=== PATIENT | female | born 1950 | race Two or more races ===

== ENCOUNTER 2020-05-23 16:36 | Inpatient (IN) | payer MEDICARE, MEDICAID ==
[~2020-05-23] VITALS: Ht 160 cm; Wt 87.7 kg
[2020-05-23] MEDS ORDERED: SOD CHL 0.45% WITH 20MEQ KCL 1,000 ML IV ONE (17:00)
[2020-05-23] MEDS ORDERED: ASCORBIC ACID 500 MG TAB PO ONE (17:00)
[2020-05-23] MEDS ORDERED: MORPHINE SULF INJ 2 MG/ML SYRINGE 1ML IV PRN (17:00)
[2020-05-23] MEDS ORDERED: NITROGLYCERIN 0.4 MG SL TAB SL PRN (17:00)
[2020-05-23] MEDS ORDERED: ALBUTEROL SULF 2.5 MG/0.5ML(0.5%) NEB SOLN ONE (17:34)
[2020-05-23 18:13] VITALS: BP 97/59
[2020-05-23 18:17] LABS: Basophils # (auto) 0 10 ^3/uL (0-0.2); Basophils % (auto) 0.2 % (0.0-2.0); Eosinophils # (auto) 0.2 10 ^3/uL (0-0.8); Eosinophils % (auto) 2.6 % (0.0-7.0); Hematocrit 37.2 % (36.0-46.0); Hemoglobin 12.6 g/dL (12.2-16.2); Lymphocytes # (auto) 1.4 10 ^3/uL (0.4-5.4); Lymphocytes % (auto) 22.3 % (10.0-50.0); Mean Corpuscular Hemoglobin 27.4 pg (28.0-32.0); Mean Corpuscular Hgb Conc. 33.9 g/dL (32.0-36.0); Mean Corpuscular Volume 80.9 fL (80.0-100.0); Monocytes # (auto) 0.4 10 ^3/uL (0-1.3); Monocytes % (auto) 7.3 % (0.0-12.0); Neutrophils # (auto) 4.1 10 ^3/uL (1.6-8.6); Neutrophils % (auto) 67.6 % (37.0-80.0); Platelet Count (auto) 192 10^3/uL (140-450); Red Blood Cells 4.59 10^6/uL (4.0-5.20); White Blood Cell 6.1 10^3/uL (4.4-10.8)
[2020-05-23] MEDS: ALBUTEROL SULF 2.5 MG/0.5ML(0.5%) NEB SOLN NEB SCH (18:18)
[2020-05-23 18:25] LABS: Red Cell Distribution Width 20.8 % (11.8-14.3)
[2020-05-23 18:35] LABS: INR 1.09 (0.9-1.15); Partial Thromboplastin Time 26.7 sec (23.0-31.2)
[2020-05-23 18:41] LABS: Cholesterol 140 mg/dL (< 200); HDL Cholesterol 35 mg/dL (40-59); LDL Cholesterol 94 mg/dL (< 100); Triglycerides 108 mg/dL (< 150)
[2020-05-23] MEDS: ERGOCALCIFEROL 50,000 UNIT(1.25MG) CAP PO SCH (19:08)
[2020-05-23 21:40] VITALS: BP 113/50
[2020-05-23] MEDS ORDERED: MONT5CHW23 PO (23:40)
[2020-05-23] MEDS ORDERED: ZINC220C8 PO (23:40)
[2020-05-23] MEDS ORDERED: CHOL20007 PO (23:40)
[2020-05-23] MEDS ORDERED: SERT-274 PO (23:40)
[2020-05-24] MEDS: ALBUTEROL SULF 2.5 MG/0.5ML(0.5%) NEB SOLN NEB SCH ×4 (03:08→21:16)
[2020-05-24 05:00] VITALS: BP 101/54
[2020-05-24 07:09] LABS: Basophils # (auto) 0 10 ^3/uL (0-0.2); Basophils % (auto) 0.2 % (0.0-2.0); Eosinophils # (auto) 0.2 10 ^3/uL (0-0.8); Eosinophils % (auto) 4.4 % (0.0-7.0); Hematocrit 32.5 % (36.0-46.0); Hemoglobin 10.7 g/dL (12.2-16.2); Lymphocytes % (auto) 26.7 % (10.0-50.0); Mean Corpuscular Hemoglobin 27.1 pg (28.0-32.0); Mean Corpuscular Volume 82.2 fL (80.0-100.0); Monocytes # (auto) 0.3 10 ^3/uL (0-1.3); Monocytes % (auto) 8.7 % (0.0-12.0); Neutrophils # (auto) 2.3 10 ^3/uL (1.6-8.6); Nucleated Red Blood Cells % 0.1 %; Platelet Count (auto) 141 10^3/uL (140-450); Red Blood Cells 3.96 10^6/uL (4.0-5.20); White Blood Cell 3.9 10^3/uL (4.4-10.8)
[2020-05-24 07:18] LABS: Cholesterol 120 mg/dL (< 200); HDL Cholesterol 31 mg/dL (40-59); LDL Cholesterol 83 mg/dL (< 100); Triglycerides 78 mg/dL (< 150)
[2020-05-24 07:24] LABS: Red Cell Distribution Width 20.9 % (11.8-14.3)
[2020-05-24 08:00] VITALS: BP 106/58
[2020-05-24 08:39] VITALS: BP 106/58
[2020-05-24] MEDS: levoFLOXacin 500MG 100 ML IV SCH (08:40)
[2020-05-24 08:55] LABS: Albumin 2.6 g/dL (3.4-5.0); Calcium 9.2 mg/dL (8.5-10.1); Potassium 4.1 mmol/L (3.5-5.1)
[2020-05-24 09:00] LABS: BUN/Creatinine Ratio 25.9; Bilirubin, Total 0.5 mg/dL (0.2-1.0); Total Protein 7.9 g/dL (6.4-8.2)
[2020-05-24] MEDS: cefTRIAXone 1GM/50ML D5W 50 ML IV SCH (10:15)
[2020-05-24] MEDS ORDERED: FUROSEMIDE 40 MG/4 ML VIAL IV ONE (11:15)
[2020-05-24] MEDS ORDERED: ALBUTEROL SULF 2.5 MG/0.5ML(0.5%) NEB SOLN NEB PRN (11:15)
[2020-05-24] MEDS ORDERED: LEVOTHYROXINE SODIUM 100 MCG/5 ML INJ IV ONE (11:15)
[2020-05-24] MEDS ORDERED: MORPHINE SULF INJ 2 MG/ML SYRINGE 1ML IV ONE (11:15)
[2020-05-24 12:37] VITALS: BP 91/59
[2020-05-24] MEDS: MONTELUKAST SODIUM 10 MG TAB PO SCH (12:46)
[2020-05-24] MEDS: methylPREDNISolone SOD SUCC 125 MG/2 ML VL IV SCH ×2 (13:44→21:37)
[2020-05-24 16:36] VITALS: BP 111/64
[2020-05-24 22:00] VITALS: BP 102/66
[2020-05-25 05:06] VITALS: BP 104/58
[2020-05-25] MEDS: LEVOTHYROXINE SODIUM 100 MCG TAB PO SCH (05:38)
[2020-05-25] MEDS: methylPREDNISolone SOD SUCC 125 MG/2 ML VL IV SCH ×3 (05:38→21:35)
[2020-05-25] MEDS: ALBUTEROL SULF 2.5 MG/0.5ML(0.5%) NEB SOLN NEB SCH ×3 (06:18→22:06)
[2020-05-25 08:00] VITALS: BP 106/58
[2020-05-25 08:34] VITALS: BP 94/60
[2020-05-25] MEDS: cefTRIAXone 1GM/50ML D5W 50 ML IV SCH (09:41)
[2020-05-25] MEDS: MONTELUKAST SODIUM 10 MG TAB PO SCH (09:41)
[2020-05-25] MEDS: ZINC SULFATE 220mg CAP or TAB PO SCH (09:41)
[2020-05-25] MEDS ORDERED: SERTRALINE HCL 50 MG TAB PO SCH (10:00)
[2020-05-25] MEDS: levoFLOXacin 500MG 100 ML IV SCH (10:50)
[2020-05-25] MEDS ORDERED: LORATADINE 10 MG TAB PO ONE (12:00)
[2020-05-25] MEDS: PIPERACILLIN-TAZOB 3.375GM 100 ML IV SCH ×2 (12:25→17:36)
[2020-05-25 12:55] VITALS: BP 93/64
[2020-05-25 15:09] LABS: Basophils # (auto) 0 10 ^3/uL (0-0.2); Basophils % (auto) 0.1 % (0.0-2.0); Eosinophils # (auto) 0 10 ^3/uL (0-0.8); Eosinophils % (auto) 0.1 % (0.0-7.0); Hematocrit 35.1 % (36.0-46.0); Hemoglobin 11.6 g/dL (12.2-16.2); Lymphocytes % (auto) 12.1 % (10.0-50.0); Mean Corpuscular Hgb Conc. 32.9 g/dL (32.0-36.0); Mean Corpuscular Volume 81.9 fL (80.0-100.0); Monocytes # (auto) 0.5 10 ^3/uL (0-1.3); Monocytes % (auto) 5.4 % (0.0-12.0); Neutrophils # (auto) 6.8 10 ^3/uL (1.6-8.6); Neutrophils % (auto) 82.3 % (37.0-80.0); Nucleated Red Blood Cells % 0.4 %; Platelet Count (auto) 189 10^3/uL (140-450); Red Blood Cells 4.28 10^6/uL (4.0-5.20); Red Cell Distribution Width 21.2 % (11.8-14.3); White Blood Cell 8.3 10^3/uL (4.4-10.8)
[2020-05-25 15:19] LABS: Albumin 2.7 g/dL (3.4-5.0); Calcium 9.7 mg/dL (8.5-10.1); Potassium 4.4 mmol/L (3.5-5.1)
[2020-05-25 15:23] LABS: BUN/Creatinine Ratio 31.7; Bilirubin, Total 0.4 mg/dL (0.2-1.0); Total Protein 8.8 g/dL (6.4-8.2)
[2020-05-25 16:36] VITALS: BP 120/64
[2020-05-25 18:25] LABS: Urine WBC None Seen /hpf (0 - 5)
[2020-05-25 19:48] LABS: Urine Bacteria NONE SEEN /hpf (None Seen); Urine Blood Negative /uL (Negative); Urine Specific Gravity 1.032 (1.001-1.035)
[2020-05-25 21:33] VITALS: BP 119/41
[2020-05-26] VITALS (7 sets, daily range): BP systolic 102–117; BP diastolic 49–80
[2020-05-26] MEDS: PIPERACILLIN-TAZOB 3.375GM 100 ML IV SCH ×5 (05:08→23:28)
[2020-05-26] MEDS: LEVOTHYROXINE SODIUM 100 MCG TAB PO SCH (05:39)
[2020-05-26] MEDS: methylPREDNISolone SOD SUCC 125 MG/2 ML VL IV SCH ×3 (05:39→22:03)
[2020-05-26] MEDS: ALBUTEROL SULF 2.5 MG/0.5ML(0.5%) NEB SOLN NEB SCH ×5 (07:20→22:15)
[2020-05-26 08:34] LABS: Basophils # (auto) 0 10 ^3/uL (0-0.2); Eosinophils # (auto) 0 10 ^3/uL (0-0.8); Lymphocytes # (auto) 0.7 10 ^3/uL (0.4-5.4); Monocytes # (auto) 0.2 10 ^3/uL (0-1.3); Monocytes % (auto) 2.8 % (0.0-12.0); Red Cell Distribution Width 21.2 % (11.8-14.3)
[2020-05-26 08:36] LABS: Basophils % (auto) 0.1 % (0.0-2.0); Hematocrit 34.8 % (36.0-46.0); Hemoglobin 11.6 g/dL (12.2-16.2); Lymphocytes % (auto) 8.7 % (10.0-50.0); Mean Corpuscular Hemoglobin 27.2 pg (28.0-32.0); Mean Corpuscular Hgb Conc. 33.4 g/dL (32.0-36.0); Mean Corpuscular Volume 81.5 fL (80.0-100.0); Neutrophils # (auto) 6.7 10 ^3/uL (1.6-8.6); Neutrophils % (auto) 88.4 % (37.0-80.0); Nucleated Red Blood Cells % 0.1 %; Platelet Count (auto) 194 10^3/uL (140-450); Red Blood Cells 4.27 10^6/uL (4.0-5.20); White Blood Cell 7.6 10^3/uL (4.4-10.8)
[2020-05-26] MEDS: ZINC SULFATE 220mg CAP or TAB PO SCH (09:35)
[2020-05-26] MEDS: LORATADINE 10 MG TAB PO SCH (09:40)
[2020-05-26] MEDS: MONTELUKAST SODIUM 10 MG TAB PO SCH (09:41)
[2020-05-26 09:59] LABS: Albumin 2.9 g/dL (3.4-5.0); Calcium 9.5 mg/dL (8.5-10.1); Magnesium 2.3 mg/dL (1.6-2.6); Potassium 4.4 mmol/L (3.5-5.1)
[2020-05-26 10:04] LABS: BUN/Creatinine Ratio 33.3; Bilirubin, Total 0.4 mg/dL (0.2-1.0); CRP High Sensitivity 0.14 mg/dL (< 0.3); Total Protein 8.6 g/dL (6.4-8.2)
[2020-05-26 10:17] LABS: Lactic Acid w/Reflex 2.7 mmol/L (0.4-2.0)
[2020-05-26 11:17] LABS: INR 1.13 (0.9-1.15); Partial Thromboplastin Time 25.4 sec (23.0-31.2)
[2020-05-26] MEDS: SERTRALINE HCL 50 MG TAB PO SCH (17:29)
[2020-05-26 19:08] LABS: Albumin 2.9 g/dL (3.4-5.0); Calcium 9.1 mg/dL (8.5-10.1); Potassium 4.4 mmol/L (3.5-5.1)
[2020-05-26 19:11] LABS: BUN/Creatinine Ratio 28.8; Bilirubin, Total 0.4 mg/dL (0.2-1.0); Total Protein 8.6 g/dL (6.4-8.2)
[2020-05-27 05:00] VITALS: BP 109/52
[2020-05-27] MEDS: ALBUTEROL SULF 2.5 MG/0.5ML(0.5%) NEB SOLN NEB SCH ×5 (06:26→22:16)
[2020-05-27] MEDS: PIPERACILLIN-TAZOB 3.375GM 100 ML IV SCH ×4 (06:33→23:56)
[2020-05-27] MEDS: methylPREDNISolone SOD SUCC 125 MG/2 ML VL IV SCH (06:33)
[2020-05-27] MEDS: LEVOTHYROXINE SODIUM 100 MCG TAB PO SCH (06:34)
[2020-05-27] MEDS: ZINC SULFATE 220mg CAP or TAB PO SCH (09:13)
[2020-05-27] MEDS: LORATADINE 10 MG TAB PO SCH (09:13)
[2020-05-27] MEDS: MONTELUKAST SODIUM 10 MG TAB PO SCH (09:14)
[2020-05-27 09:51] VITALS: BP 130/92
[2020-05-27 11:20] LABS: Free T4 (Free Thyroxine) 1.33 ng/dL (0.89-1.76)
[2020-05-27 11:21] LABS: Folate (Folic Acid) 8.99 ng/mL (5.38-24)
[2020-05-27 13:25] VITALS: BP 119/60
[2020-05-27] MEDS: methylPREDNISolone SOD SUCC 40 MG/ML VL IV SCH ×2 (13:54→22:08)
[2020-05-27 16:34] VITALS: BP 108/50
[2020-05-27] MEDS: SERTRALINE HCL 50 MG TAB PO SCH (18:01)
[2020-05-27 22:00] VITALS: BP 112/54
[2020-05-28 05:00] VITALS: BP 115/60
[2020-05-28] MEDS: methylPREDNISolone SOD SUCC 40 MG/ML VL IV SCH ×3 (05:36→22:21)
[2020-05-28] MEDS: PIPERACILLIN-TAZOB 3.375GM 100 ML IV SCH ×4 (05:36→23:32)
[2020-05-28] MEDS: LEVOTHYROXINE SODIUM 100 MCG TAB PO SCH (06:09)
[2020-05-28] MEDS: ALBUTEROL SULF 2.5 MG/0.5ML(0.5%) NEB SOLN NEB SCH ×5 (06:30→22:24)
[2020-05-28 09:00] VITALS: BP 113/85
[2020-05-28] MEDS: MONTELUKAST SODIUM 10 MG TAB PO SCH (09:57)
[2020-05-28] MEDS: ZINC SULFATE 220mg CAP or TAB PO SCH (09:57)
[2020-05-28] MEDS: LORATADINE 10 MG TAB PO SCH (09:57)
[2020-05-28 13:00] VITALS: BP 114/72
[2020-05-28 16:34] VITALS: BP 131/79
[2020-05-28] MEDS: SERTRALINE HCL 50 MG TAB PO SCH (17:15)
[2020-05-28 22:00] VITALS: BP 116/59
[2020-05-29 05:04] VITALS: BP 109/76
[2020-05-29] MEDS: methylPREDNISolone SOD SUCC 40 MG/ML VL IV SCH ×3 (05:42→22:20)
[2020-05-29] MEDS: PIPERACILLIN-TAZOB 3.375GM 100 ML IV SCH ×4 (05:42→23:42)
[2020-05-29] MEDS: LEVOTHYROXINE SODIUM 100 MCG TAB PO SCH (06:33)
[2020-05-29] MEDS: ALBUTEROL SULF 2.5 MG/0.5ML(0.5%) NEB SOLN NEB SCH ×5 (07:36→21:46)
[2020-05-29 09:00] VITALS: BP 142/72
[2020-05-29] MEDS: ZINC SULFATE 220mg CAP or TAB PO SCH (10:14)
[2020-05-29] MEDS: MONTELUKAST SODIUM 10 MG TAB PO SCH (10:14)
[2020-05-29] MEDS: LORATADINE 10 MG TAB PO SCH (10:14)
[2020-05-29 13:00] VITALS: BP 120/59
[2020-05-29 17:00] VITALS: BP 105/51
[2020-05-29] MEDS: SERTRALINE HCL 50 MG TAB PO SCH (18:32)
[2020-05-29 22:00] VITALS: BP 106/60
[2020-05-30 05:00] VITALS: BP 113/52
[2020-05-30] MEDS: methylPREDNISolone SOD SUCC 40 MG/ML VL IV SCH ×3 (05:44→21:02)
[2020-05-30] MEDS: PIPERACILLIN-TAZOB 3.375GM 100 ML IV SCH ×4 (05:44→23:36)
[2020-05-30] MEDS: ALBUTEROL SULF 2.5 MG/0.5ML(0.5%) NEB SOLN NEB SCH ×5 (06:45→21:31)
[2020-05-30] MEDS: LEVOTHYROXINE SODIUM 100 MCG TAB PO SCH (06:48)
[2020-05-30 09:00] VITALS: BP 106/71
[2020-05-30] MEDS: MONTELUKAST SODIUM 10 MG TAB PO SCH (12:12)
[2020-05-30] MEDS: ZINC SULFATE 220mg CAP or TAB PO SCH (12:12)
[2020-05-30] MEDS: LORATADINE 10 MG TAB PO SCH (12:12)
[2020-05-30 13:00] VITALS: BP 122/58
[2020-05-30 17:08] VITALS: BP 131/65
[2020-05-30] MEDS: SERTRALINE HCL 50 MG TAB PO SCH (17:32)
[2020-05-30] MEDS: ERGOCALCIFEROL 50,000 UNIT(1.25MG) CAP PO SCH (17:32)
[2020-05-30 22:00] VITALS: BP 121/61
[2020-05-31] VITALS (25 sets, daily range): BP systolic 90–138; BP diastolic 42–68
[2020-05-31] MEDS: ALBUTEROL SULF 2.5 MG/0.5ML(0.5%) NEB SOLN NEB SCH ×5 (05:01→22:03)
[2020-05-31] MEDS: LEVOTHYROXINE SODIUM 100 MCG TAB PO SCH (05:28)
[2020-05-31] MEDS: PIPERACILLIN-TAZOB 3.375GM 100 ML IV SCH ×3 (05:28→18:03)
[2020-05-31] MEDS: methylPREDNISolone SOD SUCC 40 MG/ML VL IV SCH ×3 (05:28→21:51)
[2020-05-31] MEDS: ZINC SULFATE 220mg CAP or TAB PO SCH (10:51)
[2020-05-31] MEDS: LORATADINE 10 MG TAB PO SCH (10:51)
[2020-05-31] MEDS: MONTELUKAST SODIUM 10 MG TAB PO SCH (10:51)
[2020-05-31] MEDS: SERTRALINE HCL 50 MG TAB PO SCH (18:03)
[2020-06-01] VITALS (48 sets, daily range): BP systolic 83–134; BP diastolic 23–71
[2020-06-01] MEDS: PIPERACILLIN-TAZOB 3.375GM 100 ML IV SCH ×5 (00:27→23:28)
[2020-06-01] MEDS: MORPHINE SULF INJ 2 MG/ML SYRINGE 1ML IV PRN ×4 (01:23→23:30)
[2020-06-01] MEDS: ALBUTEROL SULF 2.5 MG/0.5ML(0.5%) NEB SOLN NEB SCH ×5 (06:37→22:14)
[2020-06-01] MEDS: LEVOTHYROXINE SODIUM 100 MCG TAB PO SCH (06:39)
[2020-06-01] MEDS: methylPREDNISolone SOD SUCC 40 MG/ML VL IV SCH ×3 (06:39→20:41)
[2020-06-01 08:10] LABS: Basophils # (auto) 0 10 ^3/uL (0-0.2); Eosinophils # (auto) 0 10 ^3/uL (0-0.8); Lymphocytes # (auto) 0.9 10 ^3/uL (0.4-5.4); Mean Corpuscular Volume 80.6 fL (80.0-100.0); Monocytes # (auto) 0.4 10 ^3/uL (0-1.3)
[2020-06-01 08:12] LABS: Hematocrit 38.5 % (36.0-46.0); Hemoglobin 12.7 g/dL (12.2-16.2); Mean Corpuscular Hemoglobin 26.5 pg (28.0-32.0); Mean Corpuscular Hgb Conc. 32.9 g/dL (32.0-36.0); Monocytes % (auto) 4.1 % (0.0-12.0); Neutrophils % (auto) 85.9 % (37.0-80.0); Platelet Count (auto) 169 10^3/uL (140-450); Red Blood Cells 4.78 10^6/uL (4.0-5.20); White Blood Cell 9.3 10^3/uL (4.4-10.8)
[2020-06-01 08:16] LABS: Red Cell Distribution Width 20.2 % (11.8-14.3)
[2020-06-01 08:29] LABS: Potassium 4.2 mmol/L (3.5-5.1)
[2020-06-01 08:46] LABS: Albumin 2.5 g/dL (3.4-5.0); Bilirubin, Total 0.6 mg/dL (0.2-1.0); Calcium 9.4 mg/dL (8.5-10.1); Magnesium 2.5 mg/dL (1.6-2.6); Phosphorus 3.7 mg/dL (2.5-4.90); Total Protein 8.2 g/dL (6.4-8.2)
[2020-06-01] MEDS: LORATADINE 10 MG TAB PO SCH (10:00)
[2020-06-01] MEDS: ZINC SULFATE 220mg CAP or TAB PO SCH (10:00)
[2020-06-01] MEDS: MONTELUKAST SODIUM 10 MG TAB PO SCH (10:00)
[2020-06-01] MEDS: SERTRALINE HCL 50 MG TAB PO SCH (17:23)
[2020-06-02] VITALS (28 sets, daily range): BP systolic 96–131; BP diastolic 45–76
[2020-06-02] MEDS: methylPREDNISolone SOD SUCC 40 MG/ML VL IV SCH ×3 (05:18→21:05)
[2020-06-02] MEDS: PIPERACILLIN-TAZOB 3.375GM 100 ML IV SCH ×4 (05:19→23:22)
[2020-06-02] MEDS: LEVOTHYROXINE SODIUM 100 MCG TAB PO SCH (06:13)
[2020-06-02] MEDS: ALBUTEROL SULF 2.5 MG/0.5ML(0.5%) NEB SOLN NEB SCH ×5 (06:30→22:23)
[2020-06-02] MEDS: LORATADINE 10 MG TAB PO SCH (08:10)
[2020-06-02] MEDS: ZINC SULFATE 220mg CAP or TAB PO SCH (08:11)
[2020-06-02] MEDS: MONTELUKAST SODIUM 10 MG TAB PO SCH (08:11)
[2020-06-02] MEDS: MORPHINE SULF INJ 2 MG/ML SYRINGE 1ML IV PRN ×5 (08:24→23:16)
[2020-06-02] MEDS: ACETYLCYSTEINE 10 %(100MG/ML) SOL 4ML NEB SCH ×2 (14:48→22:23)
[2020-06-02] MEDS: SERTRALINE HCL 50 MG TAB PO SCH (17:58)
[2020-06-02] MEDS: ALPRAZolam 0.25 MG TAB PO SCH (21:06)
[2020-06-03] VITALS (28 sets, daily range): BP systolic 100–132; BP diastolic 49–86
[2020-06-03] MEDS: MORPHINE SULF INJ 2 MG/ML SYRINGE 1ML IV PRN ×5 (02:39→23:05)
[2020-06-03] MEDS: PIPERACILLIN-TAZOB 3.375GM 100 ML IV SCH ×4 (05:14→23:09)
[2020-06-03] MEDS: methylPREDNISolone SOD SUCC 40 MG/ML VL IV SCH ×3 (05:14→21:44)
[2020-06-03] MEDS: ALBUTEROL SULF 2.5 MG/0.5ML(0.5%) NEB SOLN NEB SCH ×5 (06:04→22:29)
[2020-06-03] MEDS: ACETYLCYSTEINE 10 %(100MG/ML) SOL 4ML NEB SCH ×3 (06:04→22:29)
[2020-06-03] MEDS: ALPRAZolam 0.25 MG TAB PO SCH ×3 (06:20→21:44)
[2020-06-03] MEDS: LEVOTHYROXINE SODIUM 100 MCG TAB PO SCH (06:20)
[2020-06-03] MEDS: ZINC SULFATE 220mg CAP or TAB PO SCH (10:07)
[2020-06-03] MEDS: LORATADINE 10 MG TAB PO SCH (10:07)
[2020-06-03] MEDS: MONTELUKAST SODIUM 10 MG TAB PO SCH (10:07)
[2020-06-03] MEDS: SERTRALINE HCL 50 MG TAB PO SCH (18:17)
[2020-06-03] MEDS: LORazepam 2MG/ML-1ML VIAL IV PRN (18:18)
[2020-06-04] VITALS (27 sets, daily range): BP systolic 95–141; BP diastolic 56–107
[2020-06-04] MEDS: LORazepam 2MG/ML-1ML VIAL IV PRN (00:17)
[2020-06-04] MEDS: methylPREDNISolone SOD SUCC 40 MG/ML VL IV SCH ×3 (05:32→22:08)
[2020-06-04] MEDS: PIPERACILLIN-TAZOB 3.375GM 100 ML IV SCH ×3 (05:32→18:00)
[2020-06-04] MEDS: ALPRAZolam 0.25 MG TAB PO SCH ×3 (06:00→22:08)
[2020-06-04] MEDS: ACETYLCYSTEINE 10 %(100MG/ML) SOL 4ML NEB SCH ×3 (06:13→22:38)
[2020-06-04] MEDS: ALBUTEROL SULF 2.5 MG/0.5ML(0.5%) NEB SOLN NEB SCH ×5 (06:13→22:37)
[2020-06-04] MEDS: LEVOTHYROXINE SODIUM 100 MCG TAB PO SCH (07:00)
[2020-06-04] MEDS: MONTELUKAST SODIUM 10 MG TAB PO SCH (10:00)
[2020-06-04] MEDS: LORATADINE 10 MG TAB PO SCH (10:00)
[2020-06-04] MEDS: ZINC SULFATE 220mg CAP or TAB PO SCH (10:00)
[2020-06-04] MEDS: MORPHINE SULF INJ 2 MG/ML SYRINGE 1ML IV PRN ×4 (10:40→22:09)
[2020-06-04] MEDS: SERTRALINE HCL 50 MG TAB PO SCH (18:00)
[2020-06-05] VITALS (27 sets, daily range): BP systolic 101–139; BP diastolic 58–81
[2020-06-05] MEDS: PIPERACILLIN-TAZOB 3.375GM 100 ML IV SCH ×4 (00:22→17:54)
[2020-06-05] MEDS: MORPHINE SULF INJ 2 MG/ML SYRINGE 1ML IV PRN ×6 (01:43→22:00)
[2020-06-05] MEDS: methylPREDNISolone SOD SUCC 40 MG/ML VL IV SCH ×4 (06:01→21:15)
[2020-06-05] MEDS: ALBUTEROL SULF 2.5 MG/0.5ML(0.5%) NEB SOLN NEB SCH ×5 (06:05→23:52)
[2020-06-05] MEDS: ACETYLCYSTEINE 10 %(100MG/ML) SOL 4ML NEB SCH (06:06)
[2020-06-05] MEDS: ALPRAZolam 0.25 MG TAB PO SCH (06:49)
[2020-06-05] MEDS: LEVOTHYROXINE SODIUM 100 MCG TAB PO SCH (06:49)
[2020-06-05] MEDS: MONTELUKAST SODIUM 10 MG TAB PO SCH (09:54)
[2020-06-05] MEDS: ZINC SULFATE 220mg CAP or TAB PO SCH (09:54)
[2020-06-05] MEDS: LORATADINE 10 MG TAB PO SCH (09:54)
[2020-06-05] MEDS: LORazepam 2MG/ML-1ML VIAL IV PRN ×2 (13:11→20:56)
[2020-06-05] MEDS ORDERED: LEVOTHYROXINE SODIUM 100 MCG/5 ML INJ IV ONE (14:00)
[2020-06-06] VITALS (25 sets, daily range): BP systolic 89–159; BP diastolic 50–86
[2020-06-06] MEDS: MORPHINE SULF INJ 2 MG/ML SYRINGE 1ML IV PRN ×5 (01:02→13:43)
[2020-06-06] MEDS: PIPERACILLIN-TAZOB 3.375GM 100 ML IV SCH ×4 (01:06→16:42)
[2020-06-06] MEDS: LORazepam 2MG/ML-1ML VIAL IV PRN ×3 (03:01→21:07)
[2020-06-06] MEDS: methylPREDNISolone SOD SUCC 40 MG/ML VL IV SCH ×2 (05:35→12:38)
[2020-06-06] MEDS ORDERED: ACETYLCYSTEINE 10 %(100MG/ML) SOL 4ML ONE (05:52)
[2020-06-06] MEDS: ALBUTEROL SULF 2.5 MG/0.5ML(0.5%) NEB SOLN NEB SCH ×5 (06:18→21:58)
[2020-06-06] MEDS ORDERED: LEVOTHYROXINE SODIUM 100 MCG/5 ML INJ IV SCH (10:00)
[2020-06-06] MEDS: ERGOCALCIFEROL 50,000 UNIT(1.25MG) CAP PO SCH (15:16)
[2020-06-06] MEDS ORDERED: MORPHINE SULF INJ 2 MG/ML SYRINGE 1ML IV PRN (17:00)
[2020-06-06] MEDS ORDERED: MORPHINE SULFATE 4 MG/ML SYR/VIAL IV PRN ×3 (17:00→17:15)
[2020-06-06] MEDS ORDERED: LORazepam 2MG/ML-1ML VIAL IV PRN (19:30)
== END 2020-06-06 22:05 | DRG 193 ==
LOC: ER 16:36 → TELE 16:51 → TELE-EAST 19:47 → TELE-WESTW 05-31 09:53 → DOU IN ICU 05-31 16:17
PROVIDERS: ADMIT Specialist; ATTEND Specialist
DX: J18.9 Pneumonia, unspecified organism (principal); J96.21 Acute and chronic respiratory failure with hypoxia; J90 Pleural effusion, not elsewhere classified; N39.0 Urinary tract infection, site not specified; J45.901 Unspecified asthma with (acute) exacerbation; J98.11 Atelectasis; Z68.41 Body mass index [BMI] 40.0-44.9, adult; C77.1 Secondary and unspecified malignant neoplasm of intrathoracic lymph nodes; Z66 Do not resuscitate; E86.1 Hypovolemia; E03.9 Hypothyroidism, unspecified; J20.9 Acute bronchitis, unspecified; E66.01 Morbid (severe) obesity due to excess calories; Z20.822 Contact with and (suspected) exposure to COVID-19; Z92.21 Personal history of antineoplastic chemotherapy; Z90.13 Acquired absence of bilateral breasts and nipples; Z85.3 Personal history of malignant neoplasm of breast; Z85.118 Personal history of other malignant neoplasm of bronchus and lung; Z82.49 Family history of ischemic heart disease and other diseases of the circulatory system; Z83.3 Family history of diabetes mellitus; Z83.511 Family history of glaucoma; Z86.16 Personal history of COVID-19
CPT/HCPCS: 36415; 36600; 71045; 71275; 76604; 80053; 80061; 81001; 82553; 82607; 82746; 82784; 82785; 82805; 83036; 83605; 83615; 83735; 83880; 84100; 84439; 84443; 84484; 85025; 85379; 85610; 85652; 85730; 86141; 86300; 87040; 87070; 87086; 87205; 87426; 93005; 93306; 93970; 94640; G0378; J0696; J1956; J2543; J3490